=== PATIENT | male | born 1970 | race Caucasian/White ===

== ENCOUNTER 2020-07-08 18:49 | Inpatient (IN) | payer MEDICARE, MEDICAID ==
[~2020-07-08] VITALS: Ht 177.8 cm; Wt 61.5 kg
[2020-07-09 00:20] VITALS: BP 113/79
[2020-07-09] MEDS ORDERED: ZOLPIDEM TARTRATE 10 MG TABLET PO PRN (00:45)
[2020-07-09] MEDS: HALOPERIDOL 5 MG TABLET PO PRN ×3 (06:00→16:44)
[2020-07-09] MEDS ORDERED: POTASSIUM CHLORIDE 20 MEQ ER TABLET PO ONE (06:00)
[2020-07-09] MEDS: LORazepam 2 MG TABLET PO PRN ×3 (06:00→16:44)
[2020-07-09] MEDS ORDERED: ALBUTEROL SULFATE HFA 90 MCG/PUFF 8 GM INHALER IH PRN (06:30)
[2020-07-09] MEDS ORDERED: ACETAMINOPHEN 325 MG TABLET PO PRN (06:30)
[2020-07-09] MEDS ORDERED: MAGNESIUM HYDROXIDE SUSPENSION 30 ML UDCUP PO PRN (06:30)
[2020-07-09] MEDS ORDERED: PETROLATUM,WHITE 28 GM JELLY TP PRN (06:30)
[2020-07-09] MEDS ORDERED: IBUPROFEN 400 MG TABLET PO PRN (06:30)
[2020-07-09] MEDS ORDERED: MAG HYDROX/AL HYDROX/SIMETH ES 30 ML SUSPENSION UDCUP PO PRN (06:30)
[2020-07-09] MEDS ORDERED: GuaiFENesin/D-METHORPHAN [SUGAR-FREE] 200-20MG/10 ML SYRUP UDCUP PO PRN (06:30)
[2020-07-09] MEDS ORDERED: DOCUSATE SODIUM 100 MG CAPSULE PO PRN (06:30)
[2020-07-09] MEDS ORDERED: ONDANSETRON HCL 4 MG TABLET PO PRN (06:30)
[2020-07-09] MEDS ORDERED: LOPERAMIDE HCL 2 MG CAPSULE PO PRN (06:30)
[2020-07-09] MEDS ORDERED: CloNIDine HCL 0.1 MG TABLET PO PRN (06:30)
[2020-07-09] MEDS ORDERED: NICOTINE 14 MG/24 HOUR PATCH TD PRN (06:30)
[2020-07-09 10:12] VITALS: BP 103/66
[2020-07-09 16:00] VITALS: BP 145/91
[2020-07-10] MEDS: HALOPERIDOL 5 MG TABLET PO PRN ×2 (07:52→12:00)
[2020-07-10] MEDS: LORazepam 2 MG TABLET PO PRN ×3 (07:52→16:24)
[2020-07-10 08:17] LABS: CHOL/HDL RATIO 3.3 (4.2-7.3); POTASSIUM 4.3 mmol/L (3.5-5.1)
[2020-07-10] MEDS: ESCITALOPRAM OXALATE 10 MG TABLET PO SCH (09:42)
[2020-07-10 10:05] VITALS: BP 142/89
[2020-07-10 16:00] VITALS: BP 140/97
[2020-07-11 03:12] VITALS: BP 138/86
[2020-07-11] MEDS: HALOPERIDOL 5 MG TABLET PO PRN ×4 (04:25→17:22)
[2020-07-11] MEDS: LORazepam 2 MG TABLET PO PRN ×4 (04:25→17:22)
[2020-07-11] MEDS: ESCITALOPRAM OXALATE 10 MG TABLET PO SCH (08:27)
[2020-07-11 10:05] VITALS: BP 135/90
[2020-07-11 17:06] VITALS: BP 108/69
[2020-07-12] MEDS: LORazepam 2 MG TABLET PO PRN ×3 (03:07→13:19)
[2020-07-12] MEDS: HALOPERIDOL 5 MG TABLET PO PRN ×2 (03:07→08:29)
[2020-07-12 03:09] VITALS: BP 132/100
[2020-07-12 06:38] LABS: BASOPHILS % (AUTO) 0.6 % (0.0-2.0); EOSINOPHILS % (AUTO) 2.8 % (1.0-6.0); HEMATOCRIT 43.3 % (41-53); HEMOGLOBIN 14.8 g/dL (13.5-17.5); LYMPHOCYTES # (AUTO) 2.1 K/uL (1.0-4.8); LYMPHOCYTES % (AUTO) 21.5 % (22.0-44.0); MEAN CORPUSCULAR HEMOGLOBIN 31.8 pg (26.0-34.0); MEAN CORPUSCULAR HGB CONC 34.2 G/dL (31.0-37.0); MEAN CORPUSCULAR VOLUME 93 fL (80-100); MONOCYTES # (AUTO) 0.7 K/uL (0.1-1.0); MONOCYTES % (AUTO) 7.3 % (2.0-9.0); NEUTROPHILS # (AUTO) 6.5 K/uL (1.8-7.7); NEUTROPHILS % (AUTO) 67.8 % (40.0-70.0); PLATELET COUNT (AUTO) 264 K/uL (150-450); RED BLOOD CELL COUNT(AUTO) 4.65 MIL/uL (4.50-5.90); RED CELL DISTRIBUTION WIDTH 14.1 % (11.5-14.5)
[2020-07-12 06:45] LABS: ANION GAP 7 mmol/L (8-16); CALCIUM, TOTAL 8.8 mg/dL (8.8-10.5); CARBON DIOXIDE 27 mmol/L (22-29); CHLORIDE 103 mmol/L (98-107); CREATININE 0.89 mg/dL (0.60-1.30); GLOMERULAR FILTR. RATE CALC > 60 mL/min (>60); GLUCOSE,RANDOM 111 mg/dL (70-110); POTASSIUM 4.6 mmol/L (3.5-5.1); SODIUM SERUM 137 mmol/L (136-145); UREA NITROGEN, BLOOD 28 mg/dL (7-18)
[2020-07-12] MEDS: ESCITALOPRAM OXALATE 10 MG TABLET PO SCH (08:27)
[2020-07-12 09:38] VITALS: BP 139/95
[2020-07-12] MEDS ORDERED: ESCI-8 PO (14:04)
== END 2020-07-12 14:40 | disposition home or self-care (01) | DRG 885 ==
LOC: 3EX 07-09 00:20
PROVIDERS: ADMIT Psychiatry & Neurology Child & Adolescent Psychiatry; ATTEND Psychiatry & Neurology Child & Adolescent Psychiatry
DX: F25.1 Schizoaffective disorder, depressive type (principal); R45.851 Suicidal ideations; F15.10 Other stimulant abuse, uncomplicated; F11.10 Opioid abuse, uncomplicated; F12.10 Cannabis abuse, uncomplicated; Z91.5 Personal history of self-harm; R03.0 Elevated blood-pressure reading, without diagnosis of hypertension
CPT/HCPCS: 84132; G0378